=== PATIENT | female | born 1960 | race Caucasian/White ===

== ENCOUNTER 2017-10-03 01:31 | Inpatient (IN) | payer OTHER ==
[2017-10-02 14:20] LABS: INR 0.95
[2017-10-03] VITALS (14 sets, daily range): BP systolic 97–137; BP diastolic 31–87
[~2017-10-03] VITALS: Ht 165.1 cm; Wt 139.3 kg
[~2017-10-03 01:31] MED LIST: HYDR-2966 PO; LEVO150T72 PO
[2017-10-03] MEDS ORDERED: fentaNYL CITR 100 MCG/2 ML AMP ONE (07:40)
[2017-10-03] MEDS ORDERED: LIDOCAINE 2% IV 100 MG/5ML SYR ONE (07:41)
[2017-10-03] MEDS ORDERED: PROPOFOL EMUL(*) 10MG/ML 20 ML 20 ML ONE (07:41)
[2017-10-03] MEDS ORDERED: NORMOSOL R SOLN(*) 1000 ML BAG 1,000 ML IV PRN ×2 (08:55→11:55)
[2017-10-03] MEDS ORDERED: LIDOCAINE/SOD BICARB 8.4% SYR ID ONE (08:55)
[2017-10-03] MEDS ORDERED: CELECOXIB 200 MG CAP PO ONE (08:55)
[2017-10-03] MEDS ORDERED: ACETAMINOPHEN 500 MG TAB PO ONE (08:55)
[2017-10-03] MEDS ORDERED: ROPIVACAINE 0.2% 400 MG/200ML 250 ML CONINFUS ONE (08:55)
[2017-10-03] MEDS ORDERED: ceFAZolin(*) 2GM/D5W 50ML 50 ML IVPB ONE (08:55)
[2017-10-03] MEDS ORDERED: FAMOTIDINE 20 MG TAB PO ONE (08:55)
[2017-10-03] MEDS ORDERED: TRANEXAMIC AC 1000 MG/10ML SDV 1,000 MG in DEXTROSE 5% 50 ML BAG 50 ML IV ONE (08:55)
[2017-10-03] MEDS ORDERED: cloNIDine EPIDUR INJ 100MCG/ML 40 MCG, ROPIVACAINE 0.5% 20 ML VIAL 25 ML, EPINEPHrine H... INJ ONE (08:55)
[2017-10-03] MEDS ORDERED: MIDAZOLAM 2 MG/2 ML VIAL IVP PRN (08:55)
[2017-10-03] MEDS ORDERED: PREGABALIN 150 MG CAPSULE PO ONE (08:55)
[2017-10-03] MEDS ORDERED: EPINEPHrine HCL 30 MG/30 ML ONE (09:00)
[2017-10-03] MEDS ORDERED: DEXAMETHASONE SOD PHOS 10MG/ML ONE (09:32)
[2017-10-03] MEDS ORDERED: ONDANSETRON 4 MG/2 ML VIAL ONE (09:32)
[2017-10-03] MEDS ORDERED: KETAMINE HCL 200 MG/20 ML MDV ONE (09:41)
[2017-10-03] MEDS ORDERED: BISACODYL 10 MG SUPP PR PRN (11:55)
[2017-10-03] MEDS ORDERED: ZOLPIDEM TARTRATE 5 MG TAB PO PRN (11:55)
[2017-10-03] MEDS ORDERED: FLUSH 10 ML SYR IVP PRN (11:55)
[2017-10-03] MEDS ORDERED: MAGNESIUM HYDROXIDE* 30ML UDCP PO PRN (11:55)
[2017-10-03] MEDS ORDERED: MORPHINE 4 MG/ML SDV IVP PRN (11:55)
[2017-10-03] MEDS ORDERED: PROMETHAZINE 25 MG/ML 1 ML AMP IVP PRN (11:55)
[2017-10-03] MEDS ORDERED: ONDANSETRON 4 MG/2 ML VIAL IVP PRN (11:55)
--- NOTE | 2017-10-03 13:07 | Hospitalist Consultation ---
History of Present Illness Requesting Physician Dr. Pal Reason for Consult Medical Management Chief Complaint s/p left knee replacement History of Present Illness She was admitted s/p left knee replacement. It is reported the surgery went well and without complication. History Problems: (1) Hypertension Status: Chronic (2) Hypothyroidism Status: Chronic Home Meds Reported Medications Hydrochlorothiazide (HYDROCHLOROTHIAZIDE) 25 Mg Tablet, 1 TAB PO QDAY, TAB 09/26/17 Levothyroxine Sodium (SYNTHROID) 150 Mcg Tablet, 150 MCG PO QDAY 09/26/17 Allergies: Coded Allergies: povidone-iodine (Verified Allergy, Unknown, 09/26/17) soap (Verified Allergy, Unknown, 09/26/17) Patient History: FH: Parkinson's disease MOTHER FH: pancreatic cancer MOTHER Hx Smoking: No Smoking Status: Never Smoker Caffeine Intake: Tea Caffeine/Cups Per Day: GREEN TEA 2 GLASSES DAILY Hx Alcohol Use: Yes Alcohol Used: Wine Hx Substance Use Disorder: No Social Drug Use: Never History of IV Drug Use: No Review of Systems All Systems Reviewed/Normal: Yes, Except as Noted Exam Vital Signs Vital Signs Date Time Temp Pulse Resp B/P (MAP) Pulse Ox O2 Delivery O2 Flow Rate FiO2 10/03/17 12:45 57 114/71 (85) 97 10/03/17 12:27 Nasal Cannula 2.0 10/03/17 12:17 97.8 12 General Appearance: Alert, Awake, No Acute Distress, Afebrile Neuro: No Gross deficits Cardiovascular: Regular Rate and Rhythm Respiratory: No Respiratory Distress, Clear to Auscultation Psych: Alert & Oriented X3, Appropriate Mood & Affect Assessment and Plan Problems: (1) Status post left knee replacement Status: Acute Assessment & Plan: Followed by Dr. Pal. She will be placed on Aspirin for DVT prophylaxis. She has no history of DVT or PE. (2) Hypertension Status: Chronic Assessment & Plan: She is on chronic treatment with hydrochlorothiazide. This will be started with hold parameters. (3) Hypothyroidism Status: Chronic Assessment & Plan: She is on chronic treatment with Levothyroxine. 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
[2017-10-03] MEDS ORDERED: KETOROLAC TROM 10MG TAB PO ONE (13:12)
[2017-10-03] MEDS: oxyCODONE HCL 5 MG CAP PO PRN ×2 (14:24→19:52)
[2017-10-03] MEDS: ACETAMINOPHEN 500 MG TAB PO SCH ×2 (14:24→23:28)
[2017-10-03] MEDS: ceFAZolin(*) 2GM/D5W 50ML 50 ML IVPB SCH (16:42)
--- NOTE | 2017-10-03 18:29 | RADIOLOGY IMAGING REPORT ---
FACILITY: [facility] - [place] PATIENT NAME: Conchita Bradley : 1960 MR: [id number] V: [id number] EXAM DATE: ORDERING PHYSICIAN: THOMAS ALLEN TECHNOLOGIST: Location: [facility] [place] Patient: Conchita Bradley : 1960 Visit/Account:[id number] Date of Sevice: 10/03/2017 EXAMINATION: Left knee, 2 views 10/03/2017 11:19 AM HISTORY: POST L TKA COMPARISON: None available FINDINGS: Images show left TKA. Femoral and tibial components appear to articulate well. No acute falguni ny finding otherwise evident. Ventral soft tissue postoperative gas is present. IMPRESSION: Status post left TKA. Report Dictated By: Jian Schuster MD at 10/03/2017 6:25 PM Report E-Signed By: Jian Schuster MD at 10/03/2017 6:26 PM WSN:[id number]
[2017-10-03] MEDS ORDERED: KETOROLAC TROM 10MG TAB PO PRN (19:00)
[2017-10-04] MEDS: ceFAZolin(*) 2GM/D5W 50ML 50 ML IVPB SCH ×2 (00:19→08:59)
[2017-10-04 05:21] VITALS: BP 109/65
[2017-10-04] MEDS: oxyCODONE HCL 5 MG CAP PO PRN ×3 (05:24→22:51)
[2017-10-04] MEDS: ACETAMINOPHEN 500 MG TAB PO SCH ×3 (06:19→22:51)
[2017-10-04 07:09] VITALS: BP 103/77
[2017-10-04] MEDS: ASPIRIN 325 MG ENTERIC COATED PO SCH (08:58)
[2017-10-04] MEDS: HYDROCHLOROTHIAZIDE 25 MG TAB PO SCH (08:58)
[2017-10-04] MEDS: LEVOTHYROXINE SOD 0.150 MG TAB PO SCH (08:59)
[2017-10-04] MEDS ORDERED: LEVOTHYROXINE SOD 0.150 MG TAB PO SCH (09:00)
--- NOTE | 2017-10-04 10:18 | CARSON TKA ---
EVENT DATE: October 03, 2017 SURGEON: Urbano Pal MD ANESTHESIOLOGIST: Berto Hong M.D. ANESTHESIA: Spinal followed by general. 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 POSTOPERATIVE DIAGNOSIS Left knee degenerative joint disease. PROCEDURE PERFORMED Left total knee arthroplasty. INSTRUMENTATION Micro-Port Medial Pivot CS System with a 4 femur, 4 tibia, 12 mm insert, 32x3 symmetric patella, femur cut 6 degrees valgus, 10 mm. We also utilized two packages of [employer] [place] blue cement and ZipLine Wound Closure System. Anesthesia also gave 1 gram of IV tranexamic acid ten minutes prior to start and after the implantation of the components and we utilized 50 cc of our standard Toradol/ropivacaine cocktail. OPERATION The patient received appropriate preoperative antibiotic and was brought to the operating room (OR), where Dr. Hong performed spinal followed by general anesthesia. Left thigh tourniquet was placed. The left lower extremity was then prepped and draped in the usual sterile fashion. The limb was exsanguinated. A midline incision was made followed by medial parapatellar arthrotomy. I dissected subperiosteally around the medial tibial plateau to the semimembranosus insertion. Fat pad was excised and patella released and everted. The knee was brought up in flexion. ACL and PCL were released subperiosteally by Bovisreal. Remaining articular cartilage was removed from the distal femoral condyles with sagittal saw. Step-cut drill was used to broach the canal. Distal femoral alignment guide was then placed and positioned the cutting block at 10 mm and 6 degrees valgus and this was pinned into place and appropriate retractors placed and we made our cut. Three degree external rotation guide was positioned, referencing off the anterior flange, posterior condyles and epicondyles. We sized the femur to a #4 and drilled their holes. Four-in-one cutting block was positioned followed by Z retractors and we made our four cuts. The tibial was brought anteriorly on the femur with appropriate retractors. Step-cut drill was utilized to broach the tibial canal. We placed the external rotational tibial guide. We then referenced 10 mm off the least involved lateral tibial plateau and assessed for rotation, pinned our block into place and placed appropriate retractors. Cut was made and this was sized to a #4. Stump of the ACL and PCL, medial and lateral meniscus were removed by Bovie. Posterior osteophytes were removed by curved osteotome with the capsule elevated with Huang elevator. Trial tibial baseplate was then positioned and pinned into place, referencing for previous rotation. We started with a 10 mm insert and then moved up to a 12. The femur was placed. We achieved full extension. Flexion was limited only by body habitus and stability to varus and valgus stress and to 90 degrees with satisfactory anterior drawer. The knee was brought into full extension. The patella was cut down to accept an 8x32 symmetric patella. Peg hole guide was positioned inferiorly to medially. Peg hole was drilled and this accepted our trial. The knee was brought up into flexion. Peg hole was drilled for the femur and these were then placed and trochlea cut for the chip, which was then placed. Again, we had the aforementioned range of motion and stability and the patella tracked well. Patellofemoral and tibial inset were removed and appropriate retractors placed. We set up our keel tower, which was then cut, reamed and punched for keel. This instrumentation was removed. Bone plug was placed in the distal femur. We mixed two packages of [place] blue cement while we copiously irrigated in the tissue by pulse lavage and placed 10 cc of our cocktail in the posterior capsule. The knee was then placed in appropriate position and we cemented the tibial baseplate followed by 12 mm insert and then #4 femur. Excess cement was removed. The knee was brought into full extension with axial compression while we cemented the patella. After approximately 14 minutes, the cement had cured and we had the aforementioned range of motion and stability. While we had been waiting for the cement to cure, we had copiously irrigated by pulse lavage and injected the remaining 4 mL of our cocktail into the quad mechanism. We now closed the arthrotomy with #2 Vicryl followed by 2-0 Vicryl for subcutaneous tissues and at a 45-degree angle the ZipLine Wound Closure System was placed. Compressive dressing was applied. The patient was extubated and taken to recovery in stable condition. Hospitalist team was consulted for medical management and anticoagulation, PT for rehab. IDALIA
[2017-10-04 10:22] VITALS: Ht 165.1 cm; Wt 139.3 kg
--- NOTE | 2017-10-04 10:32 | Hospitalist Progress Note ---
Subjective Progress Notes Subjective She has no complaints this morning. She had no acute events overnight. Patient Complains of: Cardiovascular: No: Chest Pain Respiratory: No: Shortness of Breath Physical Exam Vital Signs Date Time Temp Pulse Resp B/P (MAP) Pulse Ox O2 Delivery O2 Flow Rate FiO2 10/04/17 09:56 87 10/04/17 07:14 Nasal Cannula 2.0 10/04/17 07:09 97.9 50 14 103/77 (86) Intake and Output 10/04/17 00:59 Intake Total 2480 ml Balance 2480 ml Intake Oral 480 ml IV Total 2000 ml # Voids 2 General Appearance: Alert, Awake, No Acute Distress, Afebrile Neuro: No Gross deficits Cardiovascular: Regular Rate and Rhythm Respiratory: No Respiratory Distress, Clear to Auscultation Psych: Alert & Oriented X3, Appropriate Mood & Affect Result Diagram: 10/04/17 0539 Assessment and Plan Problems: (1) Status post left knee replacement Status: Acute Assessment & Plan: Followed by Dr. Pal. She will be placed on Aspirin for DVT prophylaxis. She has no history of DVT or PE. (2) Hypertension Status: Chronic Assessment & Plan: She is on chronic treatment with hydrochlorothiazide. This will be started with hold parameters. (3) Hypothyroidism Status: Chronic Assessment & Plan: She is on chronic treatment with Levothyroxine. Exam Sepsis Risk: No Definite Risk Problem Qualifiers (1) Hypertension: Hypertension type: essential hypertension Qualified Codes: I10 - Essential (primary) hypertension CASSY RUBALCAVAP Oct 04, 2017 10:32
[2017-10-04 11:25] VITALS: BP 117/72
[2017-10-04 14:16] VITALS: BP 109/67
[2017-10-04 18:53] VITALS: BP 122/82
[2017-10-04 22:48] VITALS: BP 111/53
[2017-10-05 03:35] VITALS: BP 121/76
[2017-10-05] MEDS: ACETAMINOPHEN 500 MG TAB PO SCH ×2 (06:23→15:25)
[2017-10-05] MEDS: oxyCODONE HCL 5 MG CAP PO PRN (06:23)
[2017-10-05] MEDS: LEVOTHYROXINE SOD 0.150 MG TAB PO SCH (06:23)
[2017-10-05 06:48] VITALS: BP 109/73
[2017-10-05] MEDS ORDERED: OXYC5CAP21 PO (08:09)
[2017-10-05] MEDS: HYDROCHLOROTHIAZIDE 25 MG TAB PO SCH (08:27)
[2017-10-05] MEDS: ASPIRIN 325 MG ENTERIC COATED PO SCH (08:27)
[2017-10-05] MEDS ORDERED: ASPI-764 PO (08:35)
[2017-10-05 11:20] VITALS: BP 116/70
--- NOTE | 2017-10-05 11:20 | Hospitalist Progress Note ---
Subjective Progress Notes Subjective She has no complaints this morning. She has no acute events overnight. Patient Complains of: Cardiovascular: No: Chest Pain Respiratory: No: Shortness of Breath Physical Exam Vital Signs Date Time Temp Pulse Resp B/P (MAP) Pulse Ox O2 Delivery O2 Flow Rate FiO2 10/05/17 09:58 90 10/05/17 07:06 Nasal Cannula 1.0 10/05/17 06:48 98.0 56 18 109/73 (85) Intake and Output 10/05/17 06:59 Intake Total 50 ml Balance 50 ml Intake Oral 0 ml IV Total 50 ml # Voids 4 General Appearance: Alert, Awake, No Acute Distress, Afebrile Neuro: No Gross deficits Cardiovascular: Regular Rate and Rhythm Respiratory: No Respiratory Distress, Clear to Auscultation GI: Soft and Non-Tender Psych: Alert & Oriented X3, Appropriate Mood & Affect Result Diagram: 10/05/17 0516 Assessment and Plan Problems: (1) Status post left knee replacement Status: Acute Assessment & Plan: Followed by Dr. Pal. She will be placed on Aspirin for DVT prophylaxis. She has no history of DVT or PE. (2) Hypertension Status: Chronic Assessment & Plan: She is on chronic treatment with hydrochlorothiazide. She was instructed to not start her hydrochlorothiazide, until her systolic blood pressure reaches 140. Patient reports she checks her blood pressure daily at home. She will follow up with PCP next week if remains too low to restart medication. (3) Hypothyroidism Status: Chronic Assessment & Plan: She is on chronic treatment with Levothyroxine. 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
[2017-10-05 15:27] VITALS: BP 118/86
--- NOTE | 2017-10-06 11:27 | DISCHARGE SUMMARY ---
HISTORY The patient was admitted through Day Surgery and underwent left total knee arthroplasty. Postoperatively, the hospitalist team was consulted for medical management and anticoagulation, PT for rehabilitation. She progressed in a very satisfactory manner. On the day of discharge, the wounds were clean, dry and intact. The left lower extremity was neurovascularly intact. She is to have outpatient physical therapy, home CPM and follow up within two weeks in our clinic. The hospitalist team will clear the patient prior to discharge and transfer her medical management and PT will clear her prior to discharge also. Outpatient PT and home CMP was ordered. She was given OxyIR for pain #20. PRINCIPLE DIAGNOSIS Left knee degenerative joint disease (DJD). PRINCIPLE PROCEDURE Left total knee arthroplasty. MTDD
== END 2017-10-05 18:20 | disposition home or self-care (01) | DRG 470 ==
LOC: OR 01:31 → MED 12:10 → OBSVTOIN 12:10
PROVIDERS: ADMIT Orthopaedic Surgery; ATTEND Orthopaedic Surgery
PROC: 0SRD0J9 Replacement of Left Knee Joint with Synthetic Substitute, Cemented, Open Approach (ICD-10-PCS; principal; 2017-10-03 08:40)
DX: M17.12 Unilateral primary osteoarthritis, left knee (principal); Z68.43 Body mass index [BMI] 50.0-59.9, adult; S83.272A Complex tear of lateral meniscus, current injury, left knee, initial encounter; S83.242A Other tear of medial meniscus, current injury, left knee, initial encounter; S83.522A Sprain of posterior cruciate ligament of left knee, initial encounter; E66.01 Morbid (severe) obesity due to excess calories; E78.5 Hyperlipidemia, unspecified; I10 Essential (primary) hypertension
CPT/HCPCS: 36415; 81001; 85014; 85018; 85610; 86850; 86900; 86901; 97161; C1713; C1776; J0171; J0690; J0735; J1100; J1885; J2001; J2250; J2405; J2704; J2795; J3010; J3490; J7050; J7060